=== PATIENT | female | born 1995 | race Caucasian/White ===

== ENCOUNTER 2017-02-08 18:57 | Emergency (ER) | payer OTHER ==
[~2017-02-08] VITALS: Ht 167.6 cm; Wt 63.6 kg
[2017-02-08 19:00] VITALS: BP 128/82; TEMP 98.5
[2017-02-08] MEDS ORDERED: BIRTH CONTROL (19:06)
[2017-02-08 21:38] VITALS: PULSE 68
== END 2017-02-08 21:38 | disposition home or self-care (01) ==
LOC: COL.ER 18:57
DX: S61.011A Laceration without foreign body of right thumb without damage to nail, initial encounter (principal); F90.9 Attention-deficit hyperactivity disorder, unspecified type; W25.XXXA Contact with sharp glass, initial encounter; Y92.009 Unspecified place in unspecified non-institutional (private) residence as the place of occurrence of the external cause